=== PATIENT | male | born 1970 | race Caucasian/White ===

== ENCOUNTER 2021-01-22 10:27 | Outpatient (REF) | payer OTHER, SELFPAY ==
--- NOTE | ~2021-01-22 | US_ITS ---
EXAMINATION: US ABDOMEN COMPLETE CLINICAL INFORMATION: Abdominal pain. COMPARISON: None TECHNIQUE: Real-time imaging of the abdominal viscera. FINDINGS: PANCREAS: Normal. ABDOMINAL AORTA: The proximal, mid, and distal segments are normal in caliber. INFERIOR VENA CAVA: Visualized portions are normal. LIVER: Normal. The liver is normal in size. The liver contour is normal. Parenchymal echogenicity is normal. No focal hepatic lesion. There is no intrahepatic biliary duct dilatation seen. GALLBLADDER: Normal. The gallbladder is physiologically distended without evidence of stones, sludge, polyps, wall thickening or pericholecystic fluid. Gallbladder wall thickness measures 0.4 cm. COMMON BILE DUCT: Normal in caliber measuring 0.2 cm in diameter. RIGHT KIDNEY: Normal. No hydronephrosis. No renal calculi or focal parenchymal lesions. The kidney measures 9.7 cm in maximum dimension. LEFT KIDNEY: Normal. No hydronephrosis. No renal calculi or focal parenchymal lesions. The kidney measures 10.4 cm in maximum dimension. SPLEEN: Normal. The spleen measures 9.4 cm in maximum dimension. FREE FLUID: None. US/US abdomen complete IMPRESSION: Unremarkable sonographic appearance of the abdomen. The etiology for abdominal pain is not evident on these images.
== END 2021-01-22 10:28 | disposition home or self-care (01) ==
LOC: HO.HMGCX 10:27
PROVIDERS: PCP Internal Medicine; Visit Provider Internal Medicine
DX: R10.84 Generalized abdominal pain (principal)
CPT/HCPCS: 76700

== ENCOUNTER 2021-03-19 08:53 | Day surgery (SDC) | payer OTHER, SELFPAY ==
[2021-03-12 11:02] VITALS: BMI 22.1
--- NOTE | 2021-03-17 13:28 | P.CONAN_ITS ---
Documented by User: Radha Miller NP 03/17/21 13:28 HPI - Anesthesia Eval Consult details Narrative: 50yo M for Colonoscopy [facility] Past Medical History Medical History Anxiety and depression Spontaneous pneumothorax Surgical History Surgical History No pertinent past surgical history Social History Social History Patient Tobacco Use Status: Never used Tobacco Use of substances other than those prescribed or required for medical reasons: No Advance Directives Information Provided: Yes (informational brochure mailed) Advance Directives on File: No Meds Allergies Allergy/AdvReac Type Severity Reaction Status Date / Time No Known Allergies Allergy Verified 03/12/21 10:59 Home Medications Medication Instructions Recorded Confirmed Last Taken Type buspirone 30 mg tablet 30 mg PO BID 03/12/21 03/12/21 03/19/21 History fluoxetine 40 mg capsule 40 mg PO DAILY 03/12/21 03/12/21 03/19/21 History Exam Exam Date and Time: March 17, 2021 1328 Height,Weight and Vital Signs: Height 6 ft 1 in Weight 76.204 kg Assessment and Plan Assessment Anesthesia Assessment: Chart Reviewed Documented by User: Valery Alicea MD 03/19/21 09:51 [facility] Active Problems Active Problems: Recent cold. No fever. No malaise Past Medical History Medical History Anxiety and depression Spontaneous pneumothorax Family History Family history of problems with anesthesia: No Surgical History Surgical History No pertinent past surgical history History of Problems with Anesthesia: No Social History Social History Patient Tobacco Use Status: Never used Tobacco Use of substances other than those prescribed or required for medical reasons: No Advance Directives Information Provided: Yes (informational brochure mailed) Advance Directives on File: No Meds Allergies Allergy/AdvReac Type Severity Reaction Status Date / Time No Known Allergies Allergy Verified 03/12/21 10:59 Home Medications Medication Instructions Recorded Confirmed Last Taken Type buspirone 30 mg tablet 30 mg PO BID 03/12/21 03/12/21 03/19/21 History fluoxetine 40 mg capsule 40 mg PO DAILY 03/12/21 03/12/21 03/19/21 History Exam Height,Weight and Vital Signs: Height 6 ft 1 in Weight 76.204 kg Vital Signs Temp Pulse Resp BP Pulse Ox 03/19/21 09:04 97.9 F 56 16 121/70 99 Airway Mallampati Class: II TM Dist: >3cm Neck ROM: Full Loose/Missing/Broken Teeth: No Heart: RRR Lungs: Occ wheeze Right Other: No breathing difficulty. No fever. No use of inhalers Assessment and Plan Assessment Anesthesia Assessment: Anesthesia Plan Discussed Final Anesthetic Review Family History of Problems with Anesthesia: No History of Problems with Anesthesia: No NPO: Yes ASA Class: II Final Preanesthetic Review: No Changes in Pt Med Stat, Meds/Allgs Chart Reviewed, Consent Obtained/Reviewed and Anes Risks/Benef Reviewed Patient Risk: Intermediate Procedure Risk: Low Assessment/Block/Sedation in SS: Assess/Block/Sedation-SS Anesthetic Plan Anesthetic Plan: MAC: Disposition: Standard PACU
[2021-03-19 09:04] VITALS: BP 121/70; PULSE 56; RESP 16; TEMP 36.6; O2SAT 99
[2021-03-19] MEDS: Lactated Ringers 1,000 ML 100 ML IVCONT (09:17)
--- NOTE | 2021-03-19 09:41 | MHC.SHP ---
Pre-Procedural Eval Section A Date of Service: 03/19/21 The patient is an INPATIENT: No Changes since office visit: No Cold of Flu in the past 2 weeks, No New Medical Problems, No Changes in Medication and No Patient answered all questions The History & Physical has been completed within 30 days and I have reviewed it.: Yes Section B Chief Complaint: screening Allergies: Allergies Allergy/AdvReac Type Severity Reaction Status Date / Time No Known Allergies Allergy Verified 03/12/21 10:59 Plan I have reviewed the history and physical and performed a pertinent physical examination on my patient. No changes have occurred unless specified.
--- NOTE | 2021-03-19 10:06 | PM.OP ---
Brief Operative Note Date of Service: 03/19/21 Pre-op diagnosis: screening Post-op diagnosis: same (ileitis) Surgeon: Bennie Ramírez Anesthesia: MAC Was an Workday Consultant used for this Procedure?: No Estimated blood loss (mL): 2 Pathology: other (bxs ti colon) Condition: stable Disposition: PACU
[2021-03-19 10:10] VITALS: BP 89/55; PULSE 69; RESP 16; TEMP 36.4; O2SAT 97
--- NOTE | 2021-03-19 10:18 | OP_ITS ---
SURGEON: Bennie Ramírez MD INDICATIONS: Change in bowel movements and colon cancer screening. PREOPERATIVE DIAGNOSIS: POSTOPERATIVE DIAGNOSIS: PROCEDURE PERFORMED: Colonoscopy to the terminal ileum with biopsy. ESTIMATED BLOOD LOSS: COMPLICATIONS: ANESTHESIA: Monitored anesthesia care. ASSISTANTS: SPECIMENS: DESCRIPTION OF PROCEDURE: History and physical performed. The risks and benefits of the procedure were explained to the patient, and informed consent was obtained. The patient was placed in the left lateral decubitus position. A digital rectal exam was performed and it was found to be normal. The Olympus pediatric video colonoscope was introduced into the rectum and advanced to the cecum without difficulty. The cecum was identified by transillumination, palpation, and identification of ileocecal valve. Examination was performed. The scope was removed. He tolerated the procedure well and was taken to the recovery area in stable condition. FINDINGS: The terminal ileum was examined. There was a focal area of ileitis, which was biopsied. This appeared nonspecific. The visualized colonic mucosa was within normal limits without evidence of masses or ulcers. There was no colitis. The quality of the prep was good. Random biopsies were obtained from the right colon and sigmoid. Retroflexed examination showed small internal hemorrhoids. IMPRESSION: Ileitis. RECOMMENDATIONS: Followup the biopsy results. Screening colonoscopy in 10 years. MD DYLAN Faustin/AGAPITOL / [id number] MTDD
[2021-03-19 10:25] VITALS: BP 93/58; PULSE 57; RESP 16; O2SAT 100
[2021-03-19 10:40] VITALS: BP 109/61; PULSE 58; RESP 16; TEMP 36.4; O2SAT 100
== END 2021-03-19 11:25 | disposition home or self-care (01) ==
PROVIDERS: PCP Internal Medicine; Visit Provider Internal Medicine Gastroenterology
PROC: 0DJD8ZZ Inspection of Lower Intestinal Tract, Via Natural or Artificial Opening Endoscopic (ICD-10-PCS; CPT 45378; principal; 2021-03-19 09:50)
DX: Z12.11 Encounter for screening for malignant neoplasm of colon (principal); K52.9 Noninfective gastroenteritis and colitis, unspecified; K64.8 Other hemorrhoids; F32.9 Major depressive disorder, single episode, unspecified; Z79.899 Other long term (current) drug therapy
CPT/HCPCS: 45380; 88305

== ENCOUNTER 2024-04-24 10:27 | Outpatient (AMB) | payer OTHER, SELFPAY ==
--- NOTE | 2024-04-24 10:32 | MHC.PC.OV ---
Vital Signs 04/24/24 10:36 04/24/24 10:41 Height 6 ft Weight 176 lb BMI 23.9 BP 122/64 Blood Pressure Location Rt brachial Position Sitting Pulse 66 Temp 97.5 F Pulse Oximetry (%) 98 Intake Visit Reasons: Erectile dysfunction Intake Note: Erectile dysfunction, onset 1 - 1 1/2 years ago. Allergies No Known Allergies Allergy (Verified 04/24/24 11:20) Medication List - Last Reconciled 04/24/24 by Afsaneh Patten PA-C sildenafil (Viagra) 50 mg PO DAILY PRN PFSH Medical History Spontaneous pneumothorax Anxiety and depression Surgical History (Updated 04/24/24 @ 11:39 by Afsaneh Patten PA-C) History of colonoscopy (~03/19/21) H/O vasectomy Social History Patient Tobacco Use Status: Never used Tobacco Physical exam (Primary Care) Vital Signs: Last Vital Signs Temp 97.5 F 04/24/24 10:36 Pulse 66 04/24/24 10:36 BP 122/64 04/24/24 10:36 Pulse Ox 98 04/24/24 10:36 Care Plan Goal for BP management: BP at goal at 122/64 today BMI result Body Mass Index 23.9 Normal BMI Tobacco/Smoking Status: Tobacco use Status Patient Tobacco Use Status Never used Tobacco 04/24/24 10:38 Coding Level of Care Code New Pt Level 4 (20552) Complex EM visit Add On G2211 Diagnoses Depression F32.A Low libido R68.82 Anxiety F41.9 Assessment & Plan Assessment & Plan (1) Depression: Code(s): F32.A - Depression, unspecified Category: Medical Plan: Patient reports currently seeing a therapist. Not on any medication. Depression is chronic and stable will continue to monitor. (2) Low libido: Code(s): R68.82 - Decreased libido Category: Medical Plan: Patient with decreased libido. Will obtain labs which include testosterone levels. Will obtain PSA level. Will refer to Urology. Will start patient on 50 mg of Viagra as needed. Will continue to monitor. (3) Anxiety: Code(s): F41.9 - Anxiety disorder, unspecified Category: Medical Plan: Patient reports currently seeing a therapist. Not on any medication. Anxiety is chronic and stable will continue to monitor. Plan Plan - Order blood work to evaluate testosterone levels, cholesterol, vitamin D, and thyroid function. - Check prostate-specific antigen PSA) level to assess prostate health. - Re-evaluate cholesterol due to previous borderline levels. - Prescribe Sildenafil Viagra) 50 mg to be taken as needed before sexual activity. - Refer to urology for further evaluation and management of erectile dysfunction. - Schedule a follow-up appointment in three months to review progress and assess effectiveness of treatment. Orders: Orders Comprehensive [place]. Panel Fast Today F32.A - Depression, unspecified, F41.9 - Anxiety disorder, unspecified, R68.82 - Decreased libido Magnesium Today F32.A - Depression, unspecified, F41.9 - Anxiety disorder, unspecified, R68.82 - Decreased libido TSH reflex Free T4 Today F32.A - Depression, unspecified, F41.9 - Anxiety disorder, unspecified, R68.82 - Decreased libido Vitamin D 25-OH Total Today F32.A - Depression, unspecified, F41.9 - Anxiety disorder, unspecified, R68.82 - Decreased libido Testosterone, Total Today F32.A - Depression, unspecified, F41.9 - Anxiety disorder, unspecified, R68.82 - Decreased libido Complete Blood Count Auto Diff Today F32.A - Depression, unspecified, F41.9 - Anxiety disorder, unspecified, R68.82 - Decreased libido Liver Panel Today F32.A - Depression, unspecified, F41.9 - Anxiety disorder, unspecified, R68.82 - Decreased libido Hemoglobin A1c Today F32.A - Depression, unspecified, F41.9 - Anxiety disorder, unspecified, R68.82 - Decreased libido Vitamin B12 and Folate Today F32.A - Depression, unspecified, F41.9 - Anxiety disorder, unspecified, R68.82 - Decreased libido Lipid Panel Today F32.A - Depression, unspecified, F41.9 - Anxiety disorder, unspecified, R68.82 - Decreased libido PSA,Total (Free>4and<10) Today F32.A - Depression, unspecified, F41.9 - Anxiety disorder, unspecified, R68.82 - Decreased libido Referrals Urology Referral R68.82 - Decreased libido, Z98.52 - Vasectomy status Medications: New sildenafil (Viagra) administer 30 minutes to 4 hours before activity 50 mg PO DAILY PRN 90 tabs 1RF sexual activity Patient Instructions: Patient Instructions - Schedule your blood work for fasting labs before eating in the morning. - Take Sildenafil as prescribed, avoiding cream or sugar in coffee prior if needing to fast. - Follow up with urology as referred. - Monitor for any side effects and report chest discomfort immediately. - Continue lifestyle modifications as discussed to reduce stress. - Return for follow-up in three months or sooner if new symptoms arise. Scribe Plan - Not visible on output: History of Present Illness The patient is a 53-year-old male presenting with erectile dysfunction. This issue has become progressively noticeable over the past one and a half years. There are no current medications that could be causing this, as the patient is not on any. The patient has a history of anxiety and depression, which have been well managed since his divorce three years ago. He remains off medications for these conditions. A potential factor contributing to the erectile dysfunction is life stress, predominantly due to challenges related to co-parenting and issues with his children's education; however, these are being addressed through therapy. He also notes a decline in physical strength and the onset of joint issues, including a rotator cuff tear in one shoulder and arthritis in his fingers. The patient has not previously consulted a urologist regarding erectile dysfunction but did see one for a vasectomy. The patient maintains a healthy lifestyle with physical activity. Social History - The patient is and co-parents three children, with challenges noted in co-parenting. - He has a physically active lifestyle, including over 30 years of rock climbing. - He is employed and engaged in therapy for stress management. - He is currently not taking any medications. Review of Systems - Genitourinary: Reports erectile dysfunction. - Musculoskeletal: Reports changes in strength and shoulder joint injury. - Psychiatric: Denies current anxiety or depression, history noted but managed. Physical Exam Appearance: Alert. Oriented X3. No acute distress. Head: Normal external exam. Normocephalic. Atraumatic. Eyes: Pupils are equal, round, and reactive to light. Extraocular movements intact. Conjunctiva and sclera normal. Eyelids normal. Ears: External auditory canal normal. Tympanic membranes normal. Throat: Pharynx normal. Uvula midline. Moist mucous membranes. Neck: Normal inspection. Neck supple. Full range of motion. No adenopathy. Thyroid Normal. No meningeal signs. No neck mass noted. Cardiovascular: Normal heart rate and rhythm. Heart sound normal. No murmurs noted. Pulses normal throughout. Respiratory: No respiratory distress. Painless inspiration. Breath sounds normal. No wheezes/rales/rhonchi noted. Chest nontender. No accessory muscle usage noted or decreased air movement noted. Abdomen: Soft and nontender. Bowel sounds normal in all 4 quadrants. No distention noted. No organomegaly noted. No visible injury noted. Back: No costovertebral angle tenderness. Full range of motion noted. Skin: Skin warm and dry. Normal skin color. Normal skin turgor. No rashes/lesions/lacerations noted. Extremities: No lower extremity edema. Extremities exhibit normal range of motion. Extremities nontender. Neuro: Oriented X 3. No motor deficit. No sensory deficit. Reflexes normal. Plan - Order blood work to evaluate testosterone levels, cholesterol, vitamin D, and thyroid function. - Check prostate-specific antigen PSA) level to assess prostate health. - Re-evaluate cholesterol due to previous borderline levels. - Prescribe Sildenafil Viagra) 50 mg to be taken as needed before sexual activity. - Refer to urology for further evaluation and management of erectile dysfunction. - Schedule a follow-up appointment in three months to review progress and assess effectiveness of treatment. Patient was informed and verbally consented to the use of an ambient scribe for clinic note documentation during this visit. Discussion Notes During the visit, I discussed with the patient the plan to investigate erectile dysfunction with laboratory tests, including hormonal evaluation and PSA for prostate screening. I highlighted the role of Sildenafil in managing his erectile dysfunction and outlined its proper use, potential side effects such as chest discomfort, and interactions with any newly prescribed medications. We agreed on proceeding with a urology referral to ensure comprehensive care. The importance of managing other health parameters such as cholesterol and prostate health was emphasized. The patient understood the need to start with conservative management and return for follow-up in three months, unless there are concerns before then. Potential lifestyle factors contributing to his condition and options for therapy were also reviewed. Consent and understanding of the plan were confirmed. Patient Instructions - Schedule your blood work for fasting labs before eating in the morning. - Take Sildenafil as prescribed, avoiding cream or sugar in coffee prior if needing to fast. - Follow up with urology as referred. - Monitor for any side effects and report chest discomfort immediately. - Continue lifestyle modifications as discussed to reduce stress. - Return for follow-up in three months or sooner if new symptoms arise.
[2024-04-24 10:36] VITALS: BP 122/64; PULSE 66; TEMP 36.4; O2SAT 98
[2024-04-24 10:41] VITALS: BMI 23.9
--- OUTSIDE RECORDS SUMMARY | 2024-04-24 11:35 | XMS_ITS | Patient Health Record ---
Author Organization [facility] Address [address] [place] [id number] Care Team Providers Care Ssis Ssrs Developer Name Role Phone Robyn (RETIRED) Eleno RAMOS Primary Care Provid er Unavailable Darrell HernandezBennie Unavailable ALLERGIES No Known Allergies REASON FOR REFERRAL No Information MEDICATIONS Medication SIG (Take, Route, Frequency, Duration) Notes Start Date End Date Status FLUoxetine HCl 40 MG 1 capsule Orally On ce a day for 30 day(s) Active busPIRone HCl 30 MG 1 tablet Orally Twic e a day Active MiraLax (colon prep) 17 GM/SCOOP mixed with Gatorade or Crystal Light Orally begin at 5:00 p.m. the day before the procedure for 1 day 03/03/2021 Active IMMUNIZATIONS Vaccine Route Administration Date Status Comme nts Influenza Unknown 02/17/2021 Administered Influenza Unknown 03/07/2019 Refused SOCIAL HISTORY Tobacco Use: Social History Observation Description Date Details (start date - stop date) Never Smoker NA - NA Sex Assigned At : Social History Observation Description Sex Assigned At Unknown Tobacco Use/Smoking Question Answer Notes Patient is a nonsmoker Alcohol Screen Question Answer Notes Did you have a drink containing alcohol in the p ast year? No Points 0 Interpretation Negative PROBLEMS Problem Type ICD Code Onset Dates Problem Status W/U Status Risk SNOMED Code Notes Problem Colon cancer screening (Z12.11) Active confirmed [id number] PLAN OF TREATMENT Future Test Test Name Order Date COLONOSCOPY 03/07/2019 COLONOSCOPY 03/03/2021 Insurance Providers Payer Name Payer Address Payer Phone Subscriber Number Group Number Insured Name Patient Relationship to Insured Coverage Start Date Coverage End Date [employer] [address] [place] [address] [phone] [id number] LLUVIA KING Self - patient is the insured MEDICAL (GENERAL) HISTORY Medical History History ICD Code Anxiety depression Surgical History Surgery Date(Month/Year)
--- OUTSIDE RECORDS SUMMARY | 2024-04-24 11:35 | XMS_ITS ---
Author Organization [facility] Carlson [facility] Address [address], [place] [id number] Care Team Providers Care Program Dir Name Role Phone Eleno Carlson Primary Care Provider [phone] ALLERGIES Allergen (clinical drug ingredient) Drug/Non Drug Allergy documented on EMR Reaction Allergy Type Onset Date Status Tylenol/Codeine #3 emesis Drug Allergy Active REASON FOR VISIT physical, annual visit IMMUNIZATIONS Vaccine Route Administration Date Status Comme nts Influenza Quad IM Intramuscular 02/08/2023 Administered SOCIAL HISTORY Tobacco Use: Social History Observation Description Date Details (start date - stop date) Never Smoker NA - NA Sex Assigned At : Social History Observation Description Sex Assigned At Unknown Tobacco Use/Smoking Question Answer Notes Patient is a nonsmoker Additional Findings: Tobacco Non-User Cu rrent non-smoker, currently using no form of tobacco Alcohol Screen Question Answer Notes Did you have a drink contain ing alcohol in the past year? Yes How often did you have a dri nk containing alcohol in the past year? 2 to 4 times a month (2 points) How many drinks did you have on a typical day when you were drinking in the past year? 1 or 2 drinks (0 point) How often did you have 6 or more drinks on one occasion in the past year? Never (0 point) Points 2 Interpretation Negative PROBLEMS Problem Type ICD Code Onset Dates Problem Status W/U Status Risk SNOMED Code Notes Problem Primary osteoarthrit is, right hand (M19.041) Active confirmed [id number] VITAL SIGNS BMI 24.55 kg/m2 02/08/2023 Blood pressure systolic 102 mm Hg 02/09/20 23 Blood pressure diastolic 60 mm Hg 023 Height 72 in 02/08/2023 Weight 181 lbs 02/08/2023 Encounters Encounter Location Date Provider Diagnosis Eleno Carlson DO [address] [id number] 02/08/2023 Eleno Carlson Encounter for genera l adult medical examination without abnormal findings Z00.00 and Primary osteoarthritis, right hand M19.041 ASSESSMENTS Encounter Date Diagnosis Assessment Notes Treatment Notes Treatment Clinical Notes 02/08/2023 Encounter for general adult medical examination without abnormal findings (ICD-10 - Z00.00) 02/08/2023 Primary osteoarthritis, right hand (ICD-10 - M19.041) PLAN OF TREATMENT Pending Test Test Name Order Date CBC w DIFF 02/08/2023 LIPOPROTEIN FRACTIONATION (LIPID PANEL) 02/08/2023 PROFILE, FASTING 02/08/2023 TSH (THYROID STIMULATING HORMONE) 2022 VITAMIN D 25-OH TOTAL 02/08/2023 Urinalysis and Microscopic 02/08/2023 PSA,Total (Free>4and<10) 02/08/2023 XR hand LT min 3V 02/08/2023 XR hand RT min 3V 02/08/2023 Next Appt Details Follow Up: 1 Year, Reason: H &P Progress Notes * Examination Category Sub-Category Detail Notes General Examination GENERAL APPEARANCE: well dev eloped, well nourished, in no acute distress HEAD: normocephalic, atrau matic EYES: pupils equal, round, reactive to light and accommodation, sclera non-icteric NECK/THYROID: neck supple, full ra nge of motion, no cervical lymphadenopathy, thyroid normal, no carotid bruit HEART: regular rate and rhy thm, S1, S2 normal, no murmurs CHEST: normal LUNGS: clear to auscultatio n bilaterally ABDOMEN: soft, nontender, non distended, bowel sounds present, normal NEUROLOGIC: nonfocal, motor stre ngth normal upper and lower extremities, sensory exam intact SKIN: warm and dry EXTREMITIES: no edema PERIPHERAL PULSES: 2+ dorsalis pedis, 2 + posterior tibial MUSCULOSKELETAL: swelling present of IP joints of hands, L>R MALE GENITOURINARY small left inguinal hernia present, no penile lesions or discharge, no testicular mass, testes descended bilaterally PSYCH: alert, oriented, cog nitive function intact, cooperative with exam, good eye contact, judgement and insight good History and Physical Notes * HPI (History of Present Illness) Category Sub-Category Detail Notes Depression Screening PHQ-9 Little inte rest or pleasure in doing things: Not at all Feeling down, depressed, or hopeless: No t at all Trouble falling or staying asleep, or sl eeping too much: Not at all Feeling tired or having little energy: N ot at all Poor appetite or overeating: Not at all Feeling bad about yourself o r that you are a failure, or have let yourself or your family down: Not at all Trouble concentrating on thi ngs, such as reading the newspaper or watching television: Not at all Moving or speaking so slowly that other people could have noticed; or the opposite, being so fidgety or restless that you have been moving around a lot more than usual: Not at all Thoughts that you would be b carlos off or of hurting yourself in some way: Not at all Total Score: 0 Interpretation and Intervention Depression Adelita garcia Findings: Negative Follow-Up for Depression: : Review of PH Q-9 found negative result; no follow-up needed Fall Risk Fall History Have you had two or more fal ls in the past year?: No Have you had any falls with injury in th e past year?: No Fall Risk Assessment:: No falls in the p ast year Communication Needs PCM Communication Needs - [facility] He aring Impairment?: No Vision Impairment?: Yes wears glasses fo r distance Cognitive Impairment?: No SDOH Questions SDOH Questions In the past year have you been worried about losing your housing?: No In the past year have you or any family members you live with been unable to get any of the following when it was really needed? Check all that apply:: None
--- OUTSIDE RECORDS SUMMARY | 2024-04-24 11:35 | XMS_ITS | Clinical Summary ---
Author Organization [address] [place] [address] [place] [address] [place] [address] Care Team Providers Care Fire Systems Inspector Name Role Phone No, Pcp (Do Not Change Name) Primary Care Provid er Unavailable Allergies No known active allergies Medications ACETAMINOPHEN (TYLENOL ORAL) Take by mouth. Active PHENYLEPHRINE HCL/ACETAMINOPHN (SINUS RELIEF, NON-DROWSY, ORAL) Take by mouth. Active Active Problems Problem Noted Date Diagnosed Date Sinusitis, acute 02/28/2014 Social History Tobacco Use Types Packs/Day Years Used Date Smoking Tobacco: Never Alcohol Use Standard Drinks/Week Comments Not Asked 0 (1 standard drink = 0.6 oz pur e alcohol) Sex and Gender Information Value Date Recorded Sex Assigned at Not on file Legal Sex Male 9:20 AM EST Gender Identity Not on file Sexual Orientation Not on file Last Filed Vital Signs Vital Sign Reading Time Taken Comments Blood Pressure 110/65 02/28/2014 9:32 AM EST Pulse 83 02/28/2014 9:32 AM EST Temperature 36.4 ??C (97.5 ??F) 02/28/2014 9:32 AM ES T Respiratory Rate 16 02/28/2014 9:32 AM EST Oxygen Saturation 99% 02/28/2014 9:32 AM EST Inhaled Oxygen Concentration - - Weight 72.6 kg (160 lb) 02/28/2014 9:32 AM EST Height 182.9 cm (6') 02/28/2014 9:32 AM EST Body Mass Index 21.7 02/28/2014 9:32 AM EST Plan of Treatment Health Maintenance Due Date Last Done Comments HIV screening 1981 Hepatitis C screening 1986 Tetanus adult (Td q 10,TDAP once) 1988 Lipid disorder screening 2008 Colon cancer screening, Colonoscopy 2013 Diabetes screening 2013 Shingles vaccine (Shingrix) (1 of 2 - Shingrix (RZV) 2 Dose Standard Series) 2018 Influenza vaccine 11/02/2023 Covid-19 vaccine series ( season) 2023 RSV Discussion (1 - 1-dose 7 5+ series) 10/10/2043 Meningococcal Vaccine Aged Out No josephine jaron eligible based on patient's age to complete this topic Pneumococcal Vaccine Aged Out No long er eligible based on patient's age to complete this topic Care Teams Fire Systems Inspector Relationship Specialty Start Date End Date No, Pcp (Do Not Change Name) PCP - General 02/28/14
--- OUTSIDE RECORDS SUMMARY | 2024-04-24 11:35 | XMS_ITS ---
Author Organization Eleno Carlson DO, FACP Address [address] [place], [place] [id number] Care Team Providers Care Automotive Design Layout Drafter Name Role Phone Eleno Carlson Primary Care Provider REASON FOR VISIT L shoulder pain Encounters Encounter Location Date Provider Diagnosis Eleno Carlson DO, FACP [address] [place] [phone] 12/13/2022 Eleno Carlson PLAN OF TREATMENT No Information
--- OUTSIDE RECORDS SUMMARY | 2024-04-24 11:35 | XMS_ITS ---
Author Organization Eleno Carlson DO [facility] Address [address] [place], [place] [phone] Care Team Providers Care Power Brake Rebuilder Name Role Phone Eleno Carlson Primary Care Provider ALLERGIES Allergen (clinical drug ingredient) Drug/Non Drug Allergy documented on EMR Reaction Allergy Type Onset Date Status Tylenol/Codeine #3 emesis Drug Allergy Active REASON FOR VISIT physical, annual visit SOCIAL HISTORY Tobacco Use: Social History Observation [...] alcohol in the past year? 2 to 3 times a week (3 points) How many drinks did you have on a typical day when you were drinking in the past year? 1 or 2 drinks (0 point) How often did you have 6 or more drinks on one occasion in the past year? Never (0 point) Points 3 Interpretation Negative VITAL SIGNS BMI 24.14 kg/m2 02/20/2024 Blood pressure systolic 102 mm Hg 02/20/20 24 Blood pressure diastolic 60 mm Hg 024 Height 72 in 02/20/2024 Weight 178 lbs 02/20/2024 Encounters Encounter Location Date Provider Diagnosis Eleno Carlson DO, [facility] [address] [place], [place] [phone] 02/20/2024 Eleno Carlson Encounter for genera l adult medical examination without abnormal findings Z00.00 ASSESSMENTS Encounter Date Diagnosis Assessment Notes Treatment Notes Treatment Clinical Notes 02/20/2024 Encounter for general adult medical examination without abnormal findings (ICD-10 - Z00.00) PLAN OF TREATMENT Pending Test Test Name Order Date CBC w DIFF 02/20/2024 LIPOPROTEIN FRACTIONATION (LIPID PANEL) 02/20/2024 PROFILE, FASTING 02/20/2024 TSH (THYROID STIMULATING HORMONE) 2023 VITAMIN D 25-OH TOTAL 02/20/2024 Urinalysis and Microscopic 02/20/2024 PSA,Total (Free>4and<10) 02/20/2024 Next Appt Details Follow Up: 1 Year, Reason: H &P Progress Notes * Examination Category Sub-Category Detail Notes General Examination GENERAL APPEARANCE: well dev eloped, well nourished, in no acute distress HEAD: normocephalic, atrau matic EYES: sclera non-icteric NECK/THYROID: neck supple, full ra [...] Q-9 found negative result; no follow-up needed Communication Needs [facility] Communication Needs - [facility] He aring Impairment?: No Vision Impairment?: [...]
--- OUTSIDE RECORDS SUMMARY | 2024-04-24 11:35 | XMS_ITS | Patient Health Record ---
Author Organization Eleno Carlson DO, FACP Address [address] [place], [place] [phone] Care Team Providers Care Access Clinician Name Role Phone Eleno Carlson Primary Care Provider ALLERGIES Allergen (clinical drug ingredient) Drug/Non Drug Allergy documented on EMR Reaction Allergy Type Onset Date Status Tylenol/Codeine #3 emesis Drug Allergy Active REASON FOR REFERRAL No Information IMMUNIZATIONS Vaccine Route Administration Date Status Comme nts TDaP IM Intramuscular 09/14/2012 Administered Influenza Quad IM Intramuscular 03/10/2016 Administered Td (adult) IM Intramuscular 09/09/2016 Administered Influenza Quad IM Intramuscular 02/11/2020 Administered COVID-19 Moderna Vaccine Unknown 07/27/2020 Administere d COVID-19 Moderna Vaccine Unknown 08/30/2020 Administere d COVID-19 Moderna Vaccine Unknown 04/08/2021 Administere d Influenza Quad IM Intramuscular 02/08/2023 Administered flu vaccine Unknown 01/02/2024 Administered SOCIAL HISTORY Tobacco Use: Social History [...] Never (0 point) Points 3 Interpretation Negative PROBLEMS Problem Type ICD Code Onset Dates Problem Status W/U Status Risk SNOMED Code Notes Problem Primary osteoarthritis, right hand (M19.041) Active confirmed [id number] Problem Major depressive disorder, recurrent, severe without psychotic features (F33.2) Active confirmed [id number] VITAL SIGNS Blood pressure diastolic 60 mm Hg 02/20/2024 Height 72 in 02/20/2024 Blood pressure systolic 102 mm Hg 02/20/2024 Weight 178 lbs 02/20/2024 BMI 24.14 kg/m2 02/20/2024 Encounters Encounter Location Date Provider Diagnosis Eleno Carlson DO, FACP [address] [place] [phone] 02/20/2024 Eleno Carlson Encounter for genera l adult medical examination without abnormal findings Z00.00 ASSESSMENTS Encounter Date Diagnosis Assessment Notes Treatment Notes Treatment Clinical Notes 02/20/2024 Encounter for general adult medical examination without abnormal findings (ICD-10 - Z00.00) PLAN OF TREATMENT Pending Test Test Name Order Date CBC w DIFF 02/20/2024 CBC w DIFF 02/08/2023 LIPOPROTEIN FRACTIONATION (LIPID PANEL) 02/08/2023 LIPOPROTEIN FRACTIONATION (LIPID PANEL) 02/20/2024 PROFILE, FASTING 02/20/2024 PROFILE, FASTING 02/08/2023 TSH (THYROID STIMULATING HORMONE) 2022 TSH (THYROID STIMULATING HORMONE) 2023 VITAMIN D 25-OH TOTAL 02/08/2023 VITAMIN D 25-OH TOTAL 02/20/2024 Urinalysis and Microscopic 02/08/2023 Urinalysis and Microscopic 02/20/2024 PSA,Total (Free>4and<10) 02/20/2024 PSA,Total (Free>4and<10) 02/08/2023 XR hand LT min 3V 02/08/2023 XR hand RT min 3V 02/08/2023 Insurance Providers Payer Name Payer Address Payer Phone Subscriber Number Group Number Insured Name Patient Relationship to Insured Coverage Start Date Coverage End Date [facility] [address] [place] [phone] [id number] Antelmo Marie Self - patient is the insured 0 MEDICAL (GENERAL) HISTORY Medical History History ICD Code viral meningitis spontaneous pneumothorax, age 15 Depression anxiety Surgical History Surgery Date(Month/Year) mole excision, benign vasectomy
== END 2024-04-24 11:11 | disposition home or self-care (01) ==
LOC: HO.HMCSH 10:27
PROVIDERS: PCP Internal Medicine; Visit Provider Physician Assistant Medical
DX: F32.A Depression, unspecified (principal); R68.82 Decreased libido; F41.9 Anxiety disorder, unspecified

== ENCOUNTER 2024-04-29 09:19 | Outpatient (REF) | payer OTHER, SELFPAY ==
[2024-04-29 13:14] LABS: MANUAL DIFF FLAG NO
[2024-04-29 13:27] LABS: Basophils Absolute Auto 0.1 X10*3/uL (0.0-0.2); Eosinophils Absolute Auto 0.1 X10*3/uL (0.0-0.4); Eosinophils Percent Auto 2.3 % (0-4); Hematocrit 45.3 % (42.0-52.0); Hemoglobin 14.5 g/dl (14.0-18.0); Imm Gran Abs Auto 0.05 X10*3/uL (0.00-0.03); Imm Gran Pct Auto 0.9 % (0.0-0.4); Lymphocytes Absolute Auto 1.9 X10*3/uL (1.2-4.9); Lymphocytes Percent Auto 32.5 % (20-40); Mean Corpuscular Hemoglobin 31.2 pg (27.0-33.0); Mean Corpuscular Volume 97.4 fL (80.0-98.0); Mean Platelet Volume 10.9 fL (9.4-12.4); Monocytes Absolute Auto 0.6 X10*3/uL (0.1-1.2); Monocytes Percent Auto 9.7 % (2-11); Neutrophils Absolute Auto 3.1 x10*3/uL (2.0-8.3); Neutrophils Percent Auto 53.6 % (45-73); Platelet Count 205 X10*3/uL (160-400); Red Blood Count 4.65 X10*6/uL (4.60-5.80); Red Cell Distribution Width 12.8 % (11.0-16.0); White Blood Count 5.8 X10*3/uL (4.8-10.8)
[2024-04-29 13:31] LABS: Estimated Average Glucose 105 mg/dL; Hemoglobin A1C 128.6475 umol/L; Hemoglobin A1c % 5.3 % (<6.0); Total Hemoglobin (HGBA1C) 3719.2619 umol/L
--- OUTSIDE RECORDS SUMMARY | 2024-04-29 13:41 | XMS_ITS | Patient Health Record ---
Author Organization [facility] Address [address] [place] [address] Care Team Providers Care Machine Inker Name Role Phone Robyn DE LA CRUZ, Eleno Primary Care Provider Unavail Eleazar Travis Unavailable [phone] Allergies No Known Allergies Reason For Referral No Information Medications Medication SIG (Take, Route, Fr equency, Duration) Notes Start Date End Date Status Ciclopirox 0.77 % 1 application Administrative Tech ally Twice a day for 365 days Active Lamisil 250 250mg 1 tablet oral daily for 30 days 02/09/2023 Active Social History Tobacco Use: Social History Observation Description Date Details (start date - stop date) Never Smoker NA - NA Tobacco Use/Smoking Question Answer Notes Are you a: nonsmoker Additional Findings: Tobacco Non-User Current no n-smoker Alcohol Screen Question Answer Notes Did you have a drink contain ing alcohol in the past year? Yes How often did you have a dri nk containing alcohol in the past year? 2 to 3 times a week (3 points) Points 3 Interpretation Negative Tobacco use other than smoking: Question Answer Notes Are you an other tobacco user? No Problems Problem Type SNOMED Code ICD Code Onset Dates Problem Status W/U Status Risk Notes Problem [id number] Fungal infection of nail (B35.1) Active confirmed Rx management (4) Encounters Encounter Location Date Provider Diagnosis [facility] [address] [place] [address] 07/04/2023 Eleazar Peres Plan Of Treatment Pending Test Test Name Order Date *Liver Function Test (LFT) 02/07/2023 *Liver Function Test (LFT) 04/04/2023 Insurance Providers Payer Name Payer Address Payer Phone Subscriber Number Group Number Insured Name Patient Relationship to Insured Coverage Start Date Coverage End Date [facility] [address] [place] [address] [id number] Antelmo Marie Self - patient is the insured Medical (General) History Medical History History ICD Code fungus Surgical History Surgery Date(Month/Year) colonoscopy
--- OUTSIDE RECORDS SUMMARY | 2024-04-29 13:41 | XMS_ITS | Patient Health Record ---
Author Organization [facility] Address [address] [place] [address] Care Team Providers Care Infant Nanny Name Role Phone Robyn (RETIRED) Eleno RAMOS [...] Problem Colon cancer screening (Z12.11) Active confirmed [id number] PLAN OF TREATMENT Future Test Test Name Order Date COLONOSCOPY 03/07/2019 COLONOSCOPY 03/03/2021 Insurance Providers Payer Name Payer Address Payer Phone Subscriber Number Group Number Insured Name Patient Relationship to Insured Coverage Start Date Coverage End Date [employer] [address] [place] [address] [phone] [id number] LLUVIA KING Self - patient is the insured MEDICAL (GENERAL) HISTORY Medical History History ICD Code Anxiety depression Surgical History Surgery Date(Month/Year)
--- OUTSIDE RECORDS SUMMARY | 2024-04-29 13:41 | XMS_ITS ---
Author Organization [facility] Address [address] [place] [address] Care Team Providers Care Clinical Psychologist Private Practice Name Role Phone Robyn DE LA CRUZ, Eleno Primary Care Provider Eleazar Silva Unavailable [phone] Encounters Encounter Location Date Provider Diagnosis [address] [address] 07/07/2023 Eleazar Peres Plan Of Treatment No Information Progress Notes * Antelmo KINGDOB: [birth year] (53 yo M)Acc No.[id number]:07/07/2023 Progress Note Patient:?Antelmo KING Provider:?Eleazar Peres DPM :1970???Age:52 Y???Sex:Male Edenilson e:07/07/2023 Address:[address] [place], [place] [phone] Pcp:Eleno Carlson MD Subjective: * Chief Complaints: * ??? * Medical History:? Objective: * Vitals:? Assessment: Plan: * Treatment: * Images: * The named appointment provid er may or may not be the originator of this progress note, and it is not deemed complete until electronically signed by the appointment provider. Sign off status: Pending * Provider:?Eleazar Peres DPM Date:?2023 Generated for Stevie ambriz/Jose/eTransmitting on:?04/29/2024 01:41 PM EST
[2024-04-29 13:42] LABS: Alanine Aminotransferase 22 U/L (0-40); Albumin Level 4.2 g/dL (3.5-5.0); Alkaline Phosphatase 44 U/L (39-117); Anion Gap 10 (12-20); Aspartate Amino Transferase 26 U/L (5-37); Bilirubin Direct 0.2 mg/dL (0.0-0.5); Bilirubin Total 0.5 mg/dL (0.0-1.0); Blood Urea Nitrogen 14 mg/dL (9-16); Calcium 9.2 mg/dL (8.4-10.2); Carbon Dioxide 28 mmol/L (22-29); Chloride 106 mmol/L (96-108); Cholesterol 192 mg/dL (<200); Estimated Glomerular Filt Rate > 60; Glucose Fasting 90 mg/dL (60-99); HDL Cholesterol 64 mg/dL (>40); LDL Cholesterol Calculated 114 mg/dL (<100); Magnesium 2.3 mg/dL (1.6-2.6); Potassium 4.4 mmol/L (3.3-5.1); Sodium 140 mmol/L (135-145); Total Protein 7.2 g/dL (6.5-8.0); Triglycerides 72 mg/dL (<150)
--- OUTSIDE RECORDS SUMMARY | 2024-04-29 13:42 | XMS_ITS ---
Author Organization Eleno Carlson DO, FACP Address [address] [place], [place] [phone] Care Team Providers Care Chief Physical Therapist Name Role Phone Eleno Carlson Primary Care Provider REASON FOR VISIT L shoulder pain Encounters Encounter Location Date Provider Diagnosis Eleno Carlson DO, FACP [address] [place] [phone] 12/13/2022 Eleno Carlson PLAN OF TREATMENT No Information
--- OUTSIDE RECORDS SUMMARY | 2024-04-29 13:42 | XMS_ITS ---
Author Organization [facility] DO [facility] Address [address] [place], [place] [phone] Care Team Providers Care Legal Librarian Name Role Phone Eleno Carlson Primary Care [...] osteoarthrit is, right hand (M19.041) Active confirmed [id number] VITAL SIGNS BMI 24.55 kg/m2 02/08/2023 Blood pressure systolic 102 mm Hg 02/09/20 23 Blood pressure diastolic 60 mm Hg 023 Height 72 in 02/08/2023 Weight 181 lbs 02/08/2023 Encounters Encounter Location Date Provider Diagnosis Eleno Carlson DO [address] [phone] 02/08/2023 Eleno Carlson Encounter for genera l [...] year Communication Needs PCM Communication Needs - [facility] He aring Impairment?: No Vision Impairment?: [...]
--- OUTSIDE RECORDS SUMMARY | 2024-04-29 13:42 | XMS_ITS | Patient Health Record ---
Author Organization Eleno Carlson DO, FACP Address [address] [place], [place] [phone] Care Team Providers Care Address Change Clerk Name Role Phone Eleno Carlson Primary Care Provider [phone] ALLERGIES Allergen (clinical drug ingredient) Drug/Non Drug [...] Primary osteoarthritis, right hand (M19.041) Active confirmed [id number] Problem Major depressive disorder, recurrent, severe without psychotic features (F33.2) Active confirmed 58108393 VITAL SIGNS Blood pressure diastolic 60 mm Hg 02/20/2024 Height 72 in 02/20/2024 Blood pressure systolic 102 mm Hg 02/20/2024 Weight 178 lbs 02/20/2024 BMI 24.14 kg/m2 02/20/2024 Encounters Encounter Location Date Provider Diagnosis Eleno Carlson DO, FACP [address] [place] [phone] 02/20/2024 Eleno Carlson Encounter for genera l [...] Insured Coverage Start Date Coverage End Date [facility] [address] [place] [phone] [id number] Antelmo Marie Self - patient is the insured 0 MEDICAL (GENERAL) HISTORY Medical History History ICD Code viral meningitis spontaneous pneumothorax, age 15 Depression anxiety Surgical History Surgery Date(Month/Year) mole excision, benign vasectomy
--- OUTSIDE RECORDS SUMMARY | 2024-04-29 13:42 | XMS_ITS ---
Author Organization Eleno Carlson DO [facility] Address [address] [place], [place] [phone] Care Team Providers Care Filter Plant Operator Name Role Phone Eleno Carlson Primary Care Provider [phone] ALLERGIES Allergen (clinical drug ingredient) Drug/Non Drug [...] Location Date Provider Diagnosis Eleno Carlson DO, [facility] [address] [place], [place] [phone] 02/20/2024 Eleno Carlson Encounter for genera l [...] needed Communication Needs [facility] Communication Needs - [facility] He aring Impairment?: No Vision Impairment?: [...]
--- OUTSIDE RECORDS SUMMARY | 2024-04-29 13:43 | XMS_ITS | Clinical Summary ---
Author Organization [place] [address] [place] [address] [place] [address] [place] [address] Care Team Providers Care Refuse Collector Name Role Phone No, Pcp (Do Not [...] age to complete this topic Care Teams Refuse Collector Relationship Specialty Start Date End Date No, Pcp (Do Not Change Name) PCP - General 02/28/14
--- OUTSIDE RECORDS SUMMARY | 2024-04-29 13:43 | XMS_ITS ---
Author Organization [facility] Address [address] [place] [address] Care Team Providers Care Commercial Litigation Associate Name Role Phone Eleno Carlson MD Primary Care Provider Unavail Eleazar Travis Unavailable [phone] REASON FOR VISIT cx appt 07/06 Encounters Encounter Location Date Provider Diagnosis [address] [address] 07/04/2023 Eleazar Peres Plan Of Treatment No Information Progress Notes * Antelmo KINGDOB: [birth year] (52 yo M)Acc No.[id number]:07/04/2023 Patient:?Antelmo King :1970???Age:52 Y???Sex:Male Address:[address] [place] [phone] * true * Date:? Generated for Printi katina/Jose/eTransmitting on:?04/29/2024 01:42 PM EST
--- OUTSIDE RECORDS SUMMARY | 2024-04-29 13:43 | XMS_ITS ---
Author Organization 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 No Vital Signs Height 6ft 1in in 04/04/2023 Weight 178 lbs 04/04/2023 BMI 23.48 kg/m2 04/04/2023 Encounters Encounter Location Date Provider Diagnosis [facility] [address] [place] [address] 04/04/2023 Eleazar Peres Fungal infection of nail B35.1 ; Pain in right toe(s) M79.674 and Pain in left toe(s) M79.675 Assessments Encounter Date Diagnosis (ICD Code) Assessment Notes Treatment Notes Treatment Clinical Notes Section Notes 04/04/2023 Fungal infection of nail (ICD-10 - B35.1) Rx management (4) 04/04/2023 Pain in right toe(s) (ICD-10 - M79.674) 04/04/2023 Pain in left toe(s) (ICD-10 - M79.675) Plan Of Treatment Pending Test Test Name Order Date *Liver Function Test (LFT) 04/04/2023 Next Appt Details Follow Up: 3 Months, Reason: Progress Notes * Antelmo KING MathewDOB: [birth year] (52 yo M)Acc No.[id number]:04/04/2023 Progress Notes Patient:?Antelmo King J Provider:?Eleazar Peres DPM :1970???Age:52 Y???Sex:Male Edenilson e:04/04/2023 Address:[address] [place], [place] [id number] Pcp:Eleno Carlson MD Subjective: * Chief Complaints: * ???Fungal Nails * HPI: ???Painful Nails:?Nature:?aching, tender, discolored, thick.?Location:?Both feet.?Duration:?several years.?Aggrevated by:?shoegear causing difficulty standing/walking.?Treatments:?Coclopirox topical gel , since , , relates adherence to recom tx , denies any adverse side effects to medication , (i.e. adjacent periungual skin irritation, inflammation, erosion) , Lamisil , Oral Antifungal , since , ,?relates incomplete sporatic adherence to recom tx , denies any adverse side effects to medication save taste disturbance - states he is about half finished with the rx 3 month course now. Took a break during the holidays .?Misc:?LFT #1 normal.? * ROS:?General/Constitutional:?Nausea?denies.?Vomiting?denies.?Hunger Thirst?denies.?Loss appetite?denies.?Chills?denies.?Fatigue?denies.?Fever?denies.?Night Sweats?denies.?Unexplained weight loss?denies.?Unexplained weight gain?denies.?HEENTM:?Dentures?denies.?Dizziness?denies.?Glasses/contacts?denies.?Retinopathy?de nies.?Blurred/double vision?denies.?TMJ?denies.?Discharge/drainage?denies.?Implants?denies.?Sore throat?denies.?Dental implants?denies.?Hard of hearing ?denies.?Difficulty chewing/swallowing/speaking?denies.?Nose bleeds?denies.?Sore mouth?denies.?Respiratory:?On Oxygen?denies.?Pneumonia/pleurisy?denies.?Bronchitis?denies.?Emphysema?denies.?C oughing?denies.?Cough blood?denies.?Shortness of breath?denies.?Wheezing?denies.?Cardiovascular:?Pacemaker?denies.?MVP?denies.?WPW?denies.?CHF?denies.?Heart attack?denies.?Septal defect?denies.?Rapid beat?denies.?Chest pain ?denies.?Atrial Fib.?denies.?Murmur/Palpitations?denies.?Gastrointestinal:?Hemorrhoids?denies.?Stomach/Abdominal pain?denies.?Dark blood stool?denies.?Irritable bowel ?denies.?Constipation?denies.?Diarrhea?denies.?Hematology:?Swelling?denies.?Clots?denies.?Varicose Veins?denies.?Bruising?denies.?Bleeding problem?denies.?Genitourinary:?Blood urine?denies.?Frequent/Painfu/urination/bladder control?denies.?Kidney stones?denies.?Infection (UTI)?denies.?Nephropathy?denies.?sex trans dis (STD)?denies.?Prostate?denies.?Musculoskeletal:?Hammertoes?denies.?Bunions?denies.?Back Pain?denies.?Muscle Cramps/ Resting?denies.?Muscle cramps / walking?denies.?Generalized aches and pains?denies.?Weakness?denies.?Integ.:?Reed?denies.?Scars?denies.?Corns/calluses?denies.?Ingrown nails?denies.?Painful nails?admits.?Open Sores?denies.?Rashes?denies.?Neurologic:?Difficulty sleeping?denies.?Brain disorder?denies.?Numbness?denies.?Balance trouble?denies.?Confusion?denies.?Fainting/blackouts?denies.?Tingling?denies.?Tr emors?denies.? * Medical History:? * Surgical History:?colonoscop y * Hospitalization/Major Diagno stic Procedure:?Denies Past Hospitalization * Family History:?Mother: jairo e.?Father: .? * Social History:?Tobacco Use:?Tobacco Use/Smoking?Are you a:?nonsmoker ?Additional Findings: Tobacco Non-User?Current non-smoker ?Tobacco use other than smoking?Are you an other tobacco user??No ???Drugs/Alcohol:?Drugs?Have you used drugs other than those for medical reasons in the past 12 months??No ?Alcohol Screen?Did you have a drink containing alcohol in the past year??Yes ?How often did you have a drink containing alcohol in the past year??2 to 3 times a week (3 points) ?Points?3 ?Interpretation?Negative ???Miscellaneous:?Caffeine: yes, frequency: , 3-5 cups per day. ?Children: yes, 3. ?Exercise: yes, climbing,running,mountaineering. ?Marital status: . ?Occupation: [employer] * Medications:?TakingCiclopiro x 0.77 % Gel 1 application Externally Twice a dayLamisil 250 250mg tablet 1 tablet oral dailyMedication List reviewed and reconciled with the patientTaking Ciclopirox 0.77 % Gel 1 application Externally Twice a dayTaking Lamisil 250 250mg tablet 1 tablet oral dailyMedication List reviewed and reconciled with the patient * Allergies:?N.K.D.A.yes[Aller gies Verified] Objective: * Vitals:?Ht: 6ft 1in, Wt:178, BMI:23.48, Shoe size: 8.5, Ht-cm: 185.42 cm, Wt-k.74 kg. * Examination: ???Nails: ?NAILS are:?STILL, Elongated, overgrown, dystrophic, lytic, greater than 3mm thick, discolored and friable with crumbly malodorous subungual debris, with pain on palpation , 1-5 B/L , proximal clearing of nail 0 percent.?General Examination: ?GENERAL APPEARANCE:?Reveals a pleasant, alert, well-nourished, well- developed, well hydrated individual, who demonstrates proper attention to hygiene/body habitus, and is in no acute distress, Pt serves as own?historian for office visit today.?ORIENTED:?person, place, and time.?Neurological: ?SENSORY:?Neurological exam reveals intact sensorium, pain sensation normal, vibration sensation intact, pinprick sensation is normal in the lower extremities, Pt denies, anesthesia, burning, paresthesia, tingling, B/L.?DEEP TENDON REFLEXES:?Achilles, 2/4, B/L.?Vascular: ?DP PULSES:?3/4, B/L.?PT PULSES:?3/4, B/L.?CAPILLARY FILL TIME:?immediate, all digits, B/L.?SKIN TEMPERTURE GRADIENT OF THE LOWER EXTERMITIES:?warm to cool, proximal to distal, B/L.?HAIR GROWTH/TEXTURE/ELASTICITY/TURGOR:?normal, B/L.?PIGMENTATION:?normal, B/L.?EDEMA:?absent, B/L.?Dermatologic: ?SKIN FINDINGS:?Skin exam reveals normal texture, elasticity, and turgor. There are no masses. The interspaces are clear.?Orthopedic: ?MUSCLE STRENGTH:?5/5 all groups in a symmetrical fashion , B/L.? 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 Plan: * Treatment: * Procedure Codes:? * Preventive Medicine:? ??Counseling:?Discussion:?-14: Office or other outpatient visit for the evaluation and management of an established patient, which required a medically appropriate history and/or examination and MODERATE level of DECISION MAKING for: 1 OR MORE CHRONIC PROBLEM(S) THATS WORSENING, 2 STABLE CHRONIC PROBLEMS, A NEWLY DIAGNOSED PROBLEM WITH UNCERTAIN PROGNOSIS, AN ACUTE COMPLICATED INJURY WITH MULTIPLE TREATMENT OPTIONS, OR AN ACUTE PROBLEM WITH ACCOMPANYING SYSTEMIC SYMPTOMS, THAT POSE(S) A MODERATE RISK OF MORBIDITY. THIS CONDITION MAY ALSO INCLUDE RX DRUG MANAGEMENT, OR A DECISON FOR MINOR SURGERY. The visit on the day of the encounter encompassed interpreting the data and educating the patient as to the nature of their condition, treatment options available according to their individual PMH, meds, allergies, and overall health/living conditions, as well as any potential risks or complications that may occur from a failure to adhere to, and participate in, the recommended course of therapy. The discussion included a complete verbal, and/or written explanation of the examination results, any x-rays taken, the proposed diagnosis, and outline of the treatment plan. A schedule for future care needs was also explained. The patient verbalized an understanding of the instructions at this time and agreed to be an active participant in their treatment. If the patient should think of any questions or concerns after the visit, I have encouraged the patient to call the office.?Fungal Nail Counseling:?The patient wishes to continue with the present antifungal treatment plan for their condition, The Pt prefers TO CONT topical treatment, Ciclopirox 0.77 gel as Rxed. Apply as directed to nails twice daily, The Pt prefers TO COMPLETE PO treatment, An LFT was ordered for Lamisil Rxed, Nail debridement performed extensively to reduce/remove overall nail length, girth, thickness, subungual debris, and necrotic tissue, by manual and electrical means through the use of a nail nipper and/or dremel, to more viable healthy nail plate or bed tissue. Silver nitrate used for any petechial bleeding as necessary.? * Follow Up:?3 Months * Images: * Sign off status: Completed true * Provider:?Eleazar Peres DPM Date:?2023 Generated for Stevie ambriz/Jose/Pilar on:?04/29/2024 01:42 PM EST History and Physical Notes * HPI (History of Present Illness) Category Sub-Category Detail Notes Category Not es Painful Nails Aggravated by: shoegear causing difficulty standing/walking Duration: several years Location: Both feet Nature: aching, tender, disc olored, thick Treatments: Coclopirox topical g el , since , , relates adherence to recom tx , denies any adverse side effects to medication , (i.e. adjacent periungual skin irritation, inflammation, erosion) , Lamisil , Oral Antifungal , since , , relates incomplete sporatic adherence to recom tx , denies any adverse side effects to medication save taste disturbance - states he is about half finished with the rx 3 month course now. Took a break during the holidays Misc: LFT #1 normal Examination Category Sub-Category Detail Notes Category Not es Neurological SENSORY: Neurological exa m reveals intact sensorium, pain sensation normal, vibration sensation intact, pinprick sensation is normal in the lower extremities, Pt denies, anesthesia, burning, paresthesia, tingling, B/L DEEP TENDON REFLEXES: Achilles, 2/4, B/L Dermatologic SKIN FINDINGS: Skin exam reveal s normal texture, elasticity, and turgor. There are no masses. The interspaces are clear Orthopedic MUSCLE STRENGTH: 5/5 all groups in a symm etrical fashion , B/L General Examination GENERAL APPEARANCE: Reveals a pleasant, alert, well- nourished, well-developed, well hydrated individual, who demonstrates proper attention to hygiene/body habitus, and is in no acute distress, Pt serves as own historian for office visit today ORIENTED: person, place, and t aleena Vascular DP PULSES (B): 3/4, B/L PT PULSES (B): 3/4, B/L CAPILLARY FILL TIME: immediate, all digi ts, B/L TEMPERTURE GRADIENT (C): warm to cool, p roximal to distal, B/L TROPHIC CONDITION-TEXTURE/ELASTICITY/TURGOR/HAIR GROWTH (B): normal, B/L EDEMA (C): absent, B/L PIGMENTATION: normal, B/L Nails NAILS are: STILL, Elongated , overgrown, dystrophic, lytic, greater than 3mm thick, discolored and friable with crumbly malodorous subungual debris, with pain on palpation , 1-5 B/L , proximal clearing of nail 0 percent
[2024-04-29 13:58] LABS: PSA,Total (Free>4and<10) 0.73 ng/mL (0.00-4.00)
[2024-04-29 14:02] LABS: TSH reflex Free T4 0.96 uIU/mL (0.32-4.0); Vitamin D 25-OH Total 42.6 ng/mL (>30)
[2024-04-29 14:11] LABS: Folate 14.4 ng/mL (> or = 4.0); Vitamin B12 232 pg/mL (200-900)
[2024-05-03 15:28] LABS: Testosterone, Total 487 ng/dL (250-1100)
== END 2024-04-29 09:20 | disposition home or self-care (01) ==
LOC: HO.HMGCLDS 09:19
PROVIDERS: PCP Internal Medicine; Visit Provider Physician Assistant Medical
DX: F32.A Depression, unspecified (principal); F41.9 Anxiety disorder, unspecified; R68.82 Decreased libido; Z12.5 Encounter for screening for malignant neoplasm of prostate; Z13.1 Encounter for screening for diabetes mellitus
CPT/HCPCS: 36415; 80053; 80061; 80076; 82248; 82306; 82607; 82746; 83036; 83735; 84153; 84403; 84443; 85025